=== PATIENT | male | born 1955 | race Caucasian/White ===

== ENCOUNTER 2016-04-27 12:32 | Outpatient (CLI) | payer BC ==
[~2016-04-27] VITALS: Ht 177.8 cm; Wt 95.5 kg
[2016-04-27] VITALS (8 sets, daily range): BP systolic 145–176; BP diastolic 84–101; PULSE 55–60; TEMP 97.5
[~2016-04-27 12:32] MED LIST: ASPIR-LOW81 MG PO; COREG12.5 MG PO; DIOVAN; EFFIENT5 MG PO; HEART BURN MED; NORCO 325 MG-51 TAB PO; PROTONIX20 MG PO
[2016-04-27] MEDS ORDERED: CELEXA 20MG20 MG/TAB PO (12:53)
[2016-04-27] MEDS ORDERED: DIOVAN 160MG160 MG PO (12:54)
[2016-04-27] MEDS ORDERED: EFFIENT10 MG PO (12:55)
[2016-04-27] MEDS ORDERED: OMEGA-3 1000 MG1 CAP PO (12:59)
[2016-04-27] MEDS ORDERED: FLOMAX 0.40.4 MG/CAP PO (13:00)
[2016-04-27] MEDS ORDERED: PHARMASSURE MA500 MG PO (13:00)
[2016-04-27] MEDS ORDERED: ASPIRIN 81M81 MG/TA2 PO (13:01)
[2016-04-27] MEDS ORDERED: PROTONIX 40MG T40 MG PO (13:01)
[2016-04-27] MEDS ORDERED: PROAIR HFA0.09 MG/AC IH (13:02)
[2016-04-27] MEDS ORDERED: LIORESAL 1010 MG/TAB PO (13:40)
[2016-04-27] MEDS ORDERED: CRESTOR20 MG PO (13:41)
[2016-04-27] MEDS ORDERED: 00186-0370-20 IH (13:41)
[2016-04-27] MEDS ORDERED: NITROSTAT0.4 MG/TAB SL (13:41)
== END 2016-04-27 17:14 | disposition home or self-care (01) ==
LOC: EUO 12:32
DX: M48.54XG Collapsed vertebra, not elsewhere classified, thoracic region, subsequent encounter for fracture with delayed healing (principal)
CPT/HCPCS: C1713; J2250; J3010; J7120

== ENCOUNTER → 2016-12-16 | Outpatient (CLI) | payer BC ==
[~2016-12-16] MED LIST changes: +00186-0370-20 IH; +ASPIRIN 81M81 MG/TA2 PO; +CELEXA 20MG20 MG/TAB PO; +CRESTOR20 MG PO; +DIOVAN 160MG160 MG PO; +EFFIENT10 MG PO; +FLOMAX 0.40.4 MG/CAP PO; +LIORESAL 1010 MG/TAB PO; +NITROSTAT0.4 MG/TAB SL; +OMEGA-3 1000 MG1 CAP PO; +PHARMASSURE MA500 MG PO; +PROAIR HFA0.09 MG/AC IH; +PROTONIX 40MG T40 MG PO
== END ==
LOC: COL.CARD 10:00
DX: R01.1 Cardiac murmur, unspecified (principal)

== ENCOUNTER 2017-10-09 12:17 | Inpatient (IN) | payer BC ==
[~2017-10-09] VITALS: Ht 175.3 cm; Wt 82.3 kg
[2017-10-09 13:04] LABS: BASO % 0.4 % (0.0-2.0); EOS # 0.1 (0.0-0.7); EOS % 0.7 % (0-4.0); GRAN # 6.9 (1.4-6.5); GRAN % 66.5 % (42.2-75.2); HEMATOCRIT 41.5 % (42.0-52.0); HEMOGLOBIN 14.1 g/dl (13.5-18.0); LYMPH # 2.1 (1.2-3.4); LYMPH % 20.6 % (20.0-51.0); MEAN CELL VOLUME 94 fl (80.0-100.0); MEAN CORPUSCULAR HEMOGLOBIN 32 pg (27.0-31.0); MEAN CORPUSCULAR HGB CONC 34 g/dl (33.0-37.0); MEAN PLATELET VOLUME 10.1 fl (7.4-10.4); MONO # 1.1 (0.1-0.6); MONO % 10.7 % (1.7-9.3); PLATELET COUNT 140 K/mm3 (130-400); RED BLOOD COUNT 4.41 M/mm3 (4.20-5.60); REDCELL DISTRIBUTION WIDTH-CV 12.7 % (11.5-14.5)
[2017-10-09 13:13] LABS: ALANINE AMINOTRANSFERASE 61 U/L (21-72); ALKALINE PHOSPHATASE 76 U/L (50-136); ANION GAP 12 mmol/L (7-16); AST,SGOT 43 U/L (15-37); BILIRUBIN,TOTAL 0.9 mg/dL (0.0-1.0); BLOOD UREA NITROGEN 16 mg/dL (9-20); CALCIUM 9.2 mg/dL (8.4-10.2); CARBON DIOXIDE 23 mmol/L (22-30); CHLORIDE 98 mmol/L (98-107); CREATININE, serum 1.01 mg/dL (0.66-1.25); GLUCOSE 119 mg/dL (74-106); LIPASE 400 U/L (23-300); POTASSIUM 4.2 mmol/L (3.4-5.0); SODIUM 133 mmol/L (137-145); TOTAL PROTEIN 7.2 gm/dL (6.4-8.2)
[2017-10-09 13:31] LABS: TROPONIN-I < 0.012 ng/mL (0.000-0.034)
[2017-10-09] MEDS ORDERED: CIALIS5 MG PO ×2 (13:56)
[2017-10-09 16:19] LABS: COLLECTION METHOD CLEAN CATCH
[2017-10-09 16:26] LABS: PH 6 (5-8); SQUAMOUS EPITHELIAL 0-2 /hpf; URINE APPEARANCE Clear; URINE BACTERIA None Seen /hpf; URINE BILIRUBIN Negative (NEGATIVE); URINE BLOOD Negative (NEGATIVE); URINE COLOR Yellow; URINE GLUCOSE Negative (NEGATIVE); URINE KETONE Negative (NEGATIVE); URINE LEUKOCYTE ESTERASE Negative (NEGATIVE); URINE NITRATE Negative (NEGATIVE); URINE PROTEIN(semi-quant) Negative (NEGATIVE); URINE RBC 0-2 /hpf; URINE UROBILINOGEN >=4.0 mg/dL (NEGATIVE)
[2017-10-09 16:27] VITALS: BP 149/85; PULSE 73; TEMP 98.4
[2017-10-09 19:33] VITALS: BP 142/67; PULSE 77; TEMP 98.6
[2017-10-10 04:31] VITALS: BP 140/66; PULSE 69; TEMP 98.5
[2017-10-10 08:15] VITALS: BP 147/84; PULSE 76; TEMP 98.2
[2017-10-10 11:43] VITALS: BP 147/81; PULSE 63; TEMP 97.7
[2017-10-10 16:01] VITALS: BP 137/84; PULSE 77; TEMP 98.5
[2017-10-10 19:59] VITALS: BP 154/86; PULSE 73; TEMP 98.4
[2017-10-11 01:01] VITALS: BP 160/83; PULSE 83; TEMP 97.9
[2017-10-11 04:29] VITALS: PULSE 75
[2017-10-11 07:54] VITALS: BP 173/93; PULSE 73; TEMP 97.7
[2017-10-11] MEDS ORDERED: OMNICEF 300MG300 MG PO ×2 (11:24→12:57)
[2017-10-11] MEDS ORDERED: ZITHROMAX500 M2 PO (12:57)
== END 2017-10-11 12:31 | disposition home or self-care (01) | DRG 194 ==
LOC: COL.ER 12:17 → MEDICAL 15:24
PROVIDERS: Emergency Medicine
DX: J18.9 Pneumonia, unspecified organism (principal); J44.0 Chronic obstructive pulmonary disease with (acute) lower respiratory infection; J44.9 Chronic obstructive pulmonary disease, unspecified; J20.9 Acute bronchitis, unspecified; I10 Essential (primary) hypertension; I25.10 Atherosclerotic heart disease of native coronary artery without angina pectoris; Z95.5 Presence of coronary angioplasty implant and graft; Z95.1 Presence of aortocoronary bypass graft; F17.210 Nicotine dependence, cigarettes, uncomplicated
CPT/HCPCS: 99223-AI; 99232-AI; 99239; G8978-GP; G8979-GP; J0456; J0696; J7030; J7050; Q9967

== ENCOUNTER → 2017-11-25 | Outpatient (CLI) | payer BC ==
[~2017-11-25] MED LIST changes: +CIALIS5 MG PO; +OMNICEF 300MG300 MG PO; +ZITHROMAX500 M2 PO
== END ==
LOC: COL.VAS 13:15
DX: I65.22 Occlusion and stenosis of left carotid artery (principal)

== ENCOUNTER 2023-03-25 10:59 | Day surgery (SDC) | payer MEDICARE ==
[~2023-03-25] VITALS: Ht 170.2 cm; Wt 70.1 kg
[2023-03-25] VITALS (11 sets, daily range): BP systolic 91–914; BP diastolic 63–93; PULSE 79–98; TEMP 97–98.2
[~2023-03-25 10:59] MED LIST changes: +COREG 25MG25 MG/TAB PO; -COREG12.5 MG PO; -CRESTOR20 MG PO; +CRESTOR5 MG PO; +DECADRON6 MG PO
[2023-03-25] MEDS ORDERED: NORCO 325 MG-51 TAB PO (12:09)
--- NOTE | 2023-03-25 16:00 | NUR ---
PATIENT IS ORIENTED BUT DROWSY POST-OP. DAUGHTER AT BEDSIDE. VSS. 02 @ 2L PER NC WITH SATS IN LOW TO MID 90'S. PATIENT'S LUNG FILEDS NOTE COARSE CRACKLES AND DEMINISHED BASES. PACU CALLED FOR BREATHING TX WHEN ARRIVED TO THE FLOOR PER ANESTHESIA. RT CALLED. HOSPITALIST NOTIFIED OF ARRIVAL FOR CONSULT. PATIENT HAS EXTENSIVE CARDIAC HX AND IS A DAILY SMOKER & DRINKER. PATIENT ALSO REPORTS APNEA AND WEARS A C-PAP AT HS. NO C/O PAIN OR NAUSEA. LEFT SHOULDER DSG IS CD&I WITH AQUACEL AND SLING INPLACE TO LUE. IV FLUIDS INFUSING INTO RIGHT HAND IV. LIQUIDS AT BEDSIDE. HEAD TO TOE ASSESSMENT COMPLETE. SCD'S TO BLE. NO OTHER NEEDS. CALL LIGHT IN REACH.
[2023-03-25] MEDS ORDERED: BREZTRI AEROS10.7 GM IH (16:01)
[2023-03-25] MEDS ORDERED: PROVENTIL0.09 MG/A1 IH (16:02)
--- NOTE | 2023-03-25 19:15 | NUR ---
Received change of shift report from day shift nurse. Patient resting in bed, call light in reach.
--- NOTE | 2023-03-25 20:53 | NUR ---
Denies urge to void at this time. Denies nausea/chest pain/SOA. IV fluids infusing with no problems.
--- NOTE | 2023-03-25 23:11 | NUR ---
Patient voided and stood at bedside for linen/gown changes due to sweating with x2 blankets with flat sheet. Patient tolerated standing at bedside for short periods due to back discomfort from history of back pain. Oxygen continues per nasal cannula at 2 lpm[address] sling in place to LUE, dressing to LUE in place/CDI.
[2023-03-26] VITALS (8 sets, daily range): BP systolic 105–125; BP diastolic 70–84; PULSE 60–74; TEMP 97.4–97.8
--- NOTE | 2023-03-26 05:42 | NUR ---
Saline locked right hand IV site as per doctor's order, denies nausea, tolerating sips of black coffee. Denies LUE surgical site pain, chest pain/SOA at this time. Denies urge to void. Encouraged patient to increase oral intake and to be up with assist at this time.
--- NOTE | 2023-03-26 06:40 | NUR ---
awake resting in bed, lab in to draw blood, bedside shift report received from RASHIDA Vela
--- NOTE | 2023-03-26 06:49 | NUR ---
Change of shift report given to day shift nurse
[2023-03-26 06:56] LABS: HEMOGLOBIN 10.7 g/dl (13.5-18.0)
[2023-03-26 06:58] LABS: HEMATOCRIT 32.2 % (42.0-52.0)
[2023-03-26 07:12] LABS: CALCIUM 8.7 mg/dL (8.4-10.2); CREATININE, serum 1.12 mg/dL (0.72-1.25); POTASSIUM 4.9 mmol/L (3.5-4.5)
--- NOTE | 2023-03-26 07:40 | NUR ---
HAMMAD Stewart was in to see patient, patient continues to c/o pain 09/05, medicated with scheduled tylenol and second roxicodone 5mg, full assessment completed, see interventions for further info, abductor sling in place to left arm, aquacel dressing CD&I, has brusing to left upper arm, CHAIN TESTING MACHINE OPERATOR in and assisted him up out of bed and into recliner for breakfast, breakast here and provided
--- NOTE | 2023-03-26 08:40 | NUR ---
physical therapy in to work with patient, assisted him with getting dressed and putting arm in abduction sling, patient states he is still having pain to left arm, explained to him it is too early to give additional pain meds, will monitor
--- NOTE | 2023-03-26 09:00 | NUR ---
patient stating he needs hisinhalers, cardiopulmonary notified and in and provided duoneb treatment
--- NOTE | 2023-03-26 09:30 | NUR ---
up in chair talking on phone, states breathing is better since breathing treatment, continues to c/o some pain to left shoulder, no grimacing or moaning noted
--- NOTE | 2023-03-26 09:40 | NUR ---
Initial visit; Patient thanked for coming in and visiting. He states he will be going home today and when asked stated that he has some nice kids who are available to help him. Direct Sales Professional offered God's blessings for healing and a wonderful, Happy New Year.
[2023-03-26] MEDS ORDERED: BENICAR40 MG PO (09:46)
[2023-03-26] MEDS ORDERED: NORVASC 10MG10 MG PO (09:46)
--- NOTE | 2023-03-26 10:10 | NUR ---
still c/o pain to left shoulder, medicated with roxicodone 5mg po
[2023-03-26] MEDS ORDERED: ROXICODONE 55 MG/TAB PO (10:56)
[2023-03-26] MEDS ORDERED: SENOKOT S 50 MG1 TAB PO (10:57)
--- NOTE | 2023-03-26 12:47 | NUR ---
spoke with HAMMAD Armstrong regarding patient's pain and only lasting 2 hours with roxicodone 5mg, will medicated with morphine 2mg to hold over until able to give roxicodne 10mg after 6 hours, instructed the patient this is what we would do and he verbalizes understanding, medicated at this time with moprhine 2mg slow IV, daughter at bedside, encouraged the patient to try and rest
--- NOTE | 2023-03-26 13:20 | NUR ---
continues to c/o pain, INT retaped and flushed and flusehs without difficulty or leaking, assisted out of bed and into recliner with ice to shoulder, encouraged him to try and rest, daughter remains at bedside
--- NOTE | 2023-03-26 14:00 | NUR ---
assisted up to bathroom and voids qs, states pain is finally better in left shoulder, back to recliner
--- NOTE | 2023-03-26 14:25 | NUR ---
tie up worker faxed a referral for [facility] per WANDA Belcher's request. Discharge Plan: Home with [facility]
--- NOTE | 2023-03-26 14:44 | NUR ---
medicated with roxicodone 10mg po for c/os pain, will montitor and will plan discharge later
--- NOTE | 2023-03-26 15:05 | NUR ---
INT discontinued, discharge instructions given to patient and his daughter, reinforced to patient and his daughter he is only to take roxicodone 5mg tabs (2) every 6 hours so the next dose would be at 2044, and he is not to take more often, also reinforced that he is to stop the hydrocodone, they verbalize understanding, daughter has talked with home health agency and they will be out tomorrow, Wednesday
--- NOTE | 2023-03-26 15:10 | NUR ---
discharged per WC
--- NOTE | 2023-03-26 15:24 | NUR ---
log chain worker met with patient to discuss discharge planning. Patient lives in [place]. Patient expressed he has a friend that stays with him sometimes but otherwise lives alone. Patient's daughter, Sofi, is his best point of contact, P# [phone]. PCP is Dr. Atkinson, preferred pharmacy is [facility]. Patient has no issues affording medications. DPOA-HC is Sofi Urena (daughter) and secondary is Willow Sevilla (daughter). Patient has a cane and CPAP at home. Patient reports he was independent with ADLS. Patient would like [facility] upon discharge. Patient would like to return home at time of discharge. WANDA Fisher, faxed [facility] referral for home health. Discharge Plan: Home with Home Health
== END 2023-03-26 15:10 | disposition home or self-care (01) ==
LOC: SDCO 10:59 → SURG 12:00 → EDSTATUS 12:00 → SDCO 12:00 → SURG 15:51 → SDCO 03-26 12:14 → SURG 03-26 12:14 → SDCO 03-26 12:16 → SURG 03-26 12:16 → SDCO 03-26 15:10
PROVIDERS: Physician Assistant
DX: S42.202A Unspecified fracture of upper end of left humerus, initial encounter for closed fracture (principal); G47.33 Obstructive sleep apnea (adult) (pediatric); K21.9 Gastro-esophageal reflux disease without esophagitis; I25.10 Atherosclerotic heart disease of native coronary artery without angina pectoris; E78.5 Hyperlipidemia, unspecified; I10 Essential (primary) hypertension; N40.0 Benign prostatic hyperplasia without lower urinary tract symptoms; J44.9 Chronic obstructive pulmonary disease, unspecified; F32.A Depression, unspecified; F17.210 Nicotine dependence, cigarettes, uncomplicated; F10.90 Alcohol use, unspecified, uncomplicated; W19.XXXA Unspecified fall, initial encounter; Z79.899 Other long term (current) drug therapy; Z95.1 Presence of aortocoronary bypass graft
CPT/HCPCS: OP; A4566; A4619; A6197; A9284; C1713; J0690; J1100; J2250; J2270; J2371; J2704; J2795; J3010; J7030; J7120

== ENCOUNTER 2023-05-10 12:46 | Inpatient (IN) | payer MEDICARE ==
[~2023-05-10] VITALS: Ht 175.3 cm; Wt 62.5 kg
[2023-05-10] VITALS (470 sets, daily range): BP systolic 68–101; BP diastolic 55–63; PULSE 67–80; TEMP 97.3–97.7; O2SAT 62–100
[~2023-05-10 12:46] MED LIST changes: +BENICAR40 MG PO; +BREZTRI AEROS10.7 GM IH; +NORVASC 10MG10 MG PO; +PROVENTIL0.09 MG/A1 IH; +ROXICODONE 55 MG/TAB PO; +SENOKOT S 50 MG1 TAB PO
[2023-05-10] MEDS ORDERED: NS 1,000 ML IV SCH ×2 (13:15→18:30)
[2023-05-10 13:25] LABS: BASO % 0.6 % (0.0-2.0); EOS # 0.1 K/mm3 (0.0-0.7); EOS % 1.4 % (0.0-4.0); GRAN # 2.4 K/mm3 (1.4-6.5); GRAN % 48.1 % (42.2-75.2); HEMATOCRIT 42.7 % (42.0-52.0); HEMOGLOBIN 15.2 g/dl (13.5-18.0); MEAN CELL VOLUME 92 fl (80.0-100.0); MEAN CORPUSCULAR HEMOGLOBIN 33 pg (27-31); MEAN CORPUSCULAR HGB CONC 36 g/dl (33.0-37.0); MONO # 0.5 K/mm3 (0.1-0.6); MONO % 9.5 % (1.7-9.3); PLATELET COUNT 161 K/mm3 (130-400); RED BLOOD COUNT 4.62 M/mm3 (4.20-5.60); REDCELL DISTRIBUTION WIDTH-CV 12.7 % (11.5-14.5)
[2023-05-10] MEDS ORDERED: Cefepime 2 G in Water For Injection,Sterile 20 ML IV ONE (13:30)
[2023-05-10 13:46] LABS: ALBUMIN 3.4 gm/dL (3.4-4.8); BILIRUBIN,TOTAL 0.4 mg/dL (0.2-1.2); CALCIUM 9.6 mg/dL (8.4-10.2); CREATININE, serum 1.53 mg/dL (0.72-1.25); POTASSIUM 4.7 mmol/L (3.5-4.5)
--- NOTE | 2023-05-10 15:00 | NUR ---
PT ARRIVED VIA STRETCHER FROM THE EMERGENCY DEPARTMENT. PT WAS ON AN OXYMAX AT 8L. PT WITH 2 IV SITES, ONE INFUSING VANCOMYCIN. PT IS ALERT AND ORIENTED. COMPLAINS OF PAIN IN HIS BACK. DAUGHTER IS IN THE WAITING ROOM. PT HAS POSSESSION OF HIS PHONE. DAUGHTER WILL BRING HOME WALLET. CALL LIGHT IS IN REACH AND THE BED ALARM IS ON.
[2023-05-10] MEDS ORDERED: Ondansetron 4 MG/2 ML VIAL IV PRN (16:00)
[2023-05-10] MEDS ORDERED: Acetaminophen 500 MG TAB PO PRN (16:00)
[2023-05-10] MEDS ORDERED: Folic Acid 1 MG,Thiamine 200 MG in NS 1,000 ML IV ONE (16:00)
[2023-05-10] MEDS ORDERED: Pantoprazole 40 MG in NS 10 ML IV SCH (16:02)
[2023-05-10 16:45] LABS: INR 1.1 (0.8-3.0); PROTHROMBIN TIME 12.1 SECONDS (9.7-12.8)
[2023-05-10] MEDS ORDERED: Lidocaine 4% Topical Patch TP SCH (17:07)
[2023-05-10] MEDS ORDERED: NORCO 325 MG-51 TAB PO (17:17)
[2023-05-10] MEDS ORDERED: diazePAM 10 MG TAB PO SCH (17:45)
[2023-05-10] MEDS ORDERED: diazePAM 5 MG TAB PO PRN (17:45)
[2023-05-10] MEDS ORDERED: Mag/Al Hydrox/Simeth Susp 30 ML CUP PO PRN (17:45)
[2023-05-10] MEDS ORDERED: chlordiazePOXIDE 25 MG CAP PO PRN (17:45)
[2023-05-10 18:18] LABS: COLLECTION METHOD CLEAN CATCH
[2023-05-10 18:27] LABS: URINE APPEARANCE CLEAR (CLEAR/HAZY); URINE BLOOD NEGATIVE (NEGATIVE); URINE COLOR YELLOW (YELLOW); URINE GLUCOSE NEGATIVE (NEGATIVE); URINE KETONE NEGATIVE (NEGATIVE); URINE NITRATE NEGATIVE (NEGATIVE); URINE PROTEIN(semi-quant) NEGATIVE (NEGATIVE); URINE UROBILINOGEN 0.2 E.U/dL (0.2-1.0)
[2023-05-10 18:41] LABS: TRICYCLIC ANTIDEPRESS URINE NEGATIVE (NEGATIVE)
[2023-05-10] MEDS ORDERED: NS 500 ML IV ONE (19:00)
--- NOTE | 2023-05-10 20:00 | NUR ---
PT IS ALERT AND ORIENTED TO SELF, BUT UNWILLING TO FULLY PARTICIPATE IN ASSESSMENT AT THIS TIME. LOW BP NOTED AND BEING MONITORED WITH BOLUS INFUSING AT THIS TIME. PT DENIES PAIN, BUT REPORTS HE IS TIRED AND WISHES TO BE LEFT ALONE. ASSESSMENTS COMPLETED, CARE PLANS REVIEWED, BED IN LOW POSITION, AND CALL LIGHT WITHIN REACH. NO ADDITIONAL NEEDS VOICED OR ANTICIPATED.
--- NOTE | 2023-05-10 21:54 | NUR ---
AT 2150 PT'S DAUGHTER, PATRICIA LÓPEZ, CALLED FOR CONCENT OF PLACEMENT OF CENTRAL LINE. SECOND NURSE VERIFIED CONSENT.
[2023-05-10 23:08] LABS: CREATININE, serum 1.21 mg/dL (0.72-1.25); POTASSIUM 4.6 mmol/L (3.5-4.5)
--- NOTE | 2023-05-10 23:20 | NUR ---
AT 2230 DR CASTRO AT BEDSIDE TO OBTAIN CENTRAL LINE INSERTION. BILATERAL SUBCLAVIAN SITES ATTEMPED UNSUCCESSFULLY. PT EDUCATED THAT A CENTRAL LINE SITE WAS NOT OBTAINED AT THIS TIME. RASHIDA NELSON WAS ABLE TO INITIATE PERIFERAL SITE TO R WRIST. PT TOLERATED WELL.
[2023-05-11] VITALS (975 sets, daily range): BP systolic 90–122; BP diastolic 54–80; PULSE 75–100; TEMP 97.3–98.7; O2SAT 84–100
[2023-05-11 05:46] LABS: BASO % 0.5 % (0.0-2.0); EOS # 0.1 K/mm3 (0.0-0.7); EOS % 2.3 % (0.0-4.0); GRAN # 3.3 K/mm3 (1.4-6.5); GRAN % 52.7 % (42.2-75.2); LYMPH # 2.1 K/mm3 (1.2-3.4); LYMPH % 34.6 % (20.0-51.0); MEAN CELL VOLUME 94 fl (80.0-100.0); MEAN CORPUSCULAR HGB CONC 35 g/dl (33.0-37.0); MONO # 0.6 K/mm3 (0.1-0.6); MONO % 9.4 % (1.7-9.3); PLATELET COUNT 141 K/mm3 (130-400); RED BLOOD COUNT 3.76 M/mm3 (4.20-5.60); REDCELL DISTRIBUTION WIDTH-CV 12.8 % (11.5-14.5)
[2023-05-11 05:57] LABS: HEMATOCRIT 35.4 % (42.0-52.0); MEAN CORPUSCULAR HEMOGLOBIN 32 pg (27-31)
[2023-05-11 05:58] LABS: HEMOGLOBIN 12.2 g/dl (13.5-18.0)
[2023-05-11 06:05] LABS: CALCIUM 8.2 mg/dL (8.4-10.2); CREATININE, serum 1.13 mg/dL (0.72-1.25); POTASSIUM 4.2 mmol/L (3.5-4.5)
--- NOTE | 2023-05-11 07:00 | NUR ---
Report received from RASHIDA Schaffer. Pt had to be placed on levophed overnight but working on titrating off. Pt alert and oriented this AM. Scoring 0 on CIWA at this time. NS infusing to right wrist. Pt offers no complaints. Call light in reach and bed alarm on.
[2023-05-11] MEDS ORDERED: Multivitamin TAB PO SCH (08:00)
[2023-05-11] MEDS ORDERED: Folic Acid 1 MG TAB PO SCH (09:00)
[2023-05-11] MEDS ORDERED: Budesonide/Glycopyrrolate/Formoterol **** subs to Budesonide + Umeclid/Vilant IH SCH (10:51)
[2023-05-11] MEDS ORDERED: Albuterol 0.042% Neb Soln 1.25 MG/3 ML UD IH PRN (11:00)
[2023-05-11] MEDS ORDERED: LORAZEPAM PO PRN (11:15)
[2023-05-11] MEDS ORDERED: Magnesium Sulfate 2 GM/50 ML IV SOLN IV SCH (11:30)
[2023-05-11] MEDS ORDERED: Magnesium Oxide 400 MG TAB PO SCH (12:16)
--- NOTE | 2023-05-11 13:03 | NUR ---
Gearcase Assembler met with patient to complete initial intake. Patient lives alone in [place] and sees Dr. Atkinson for primary care. Patient obtains medications from [facility] and advised he normally picks them up. Patient is able to drive himself to medical appointments and reported independence with ADLS. Patient did indicate he has had some recent falls at home and estimated 3 or 4 recent falls. Patient has a home CPAP, a cane, and walker. Patient stated he has mostly been using a cane for ambulation. Patient reported having services through [facility] currently. Patient advised his daughter, Sofi (ph#[phone]) is his DPOA-HC and that the hospital should have a copy of it. WANDA did not locate any Advance Directives in EMR. WANDA contacted Dr. Atkinson's office and requested copy, however they also did not have one. WANDA contacted Mansoor at [facility] and faxed clinical updates.
--- NOTE | 2023-05-11 17:00 | NUR ---
REPORT RECEIVED FROM RASHIDA WOOD, IN ICU. PT ON THE FLOOR VIA WHEELCHIAR WITH BELONGINGS AND DAUGHTER AT BEDSIDE. PT ORIENTED TO ROOM AND FLUIDS STARTED PER ORDER. PT ON 2L NASAL CANNULA AND REPORTS BEING SHORT OF BREATH FROM ICU TRANSFER. PT REPORTS DISCOMFORT TO RIGHT SIDE OF NECK WHEN SWALLOWING, ISRAEL NOTIFIED THIS NURSE THAT PREVIOUS ATTEMPTS TO START CENTRAL LINE COULD RELATE TO PAIN. PT HAS SCATTERED BRUISING TO BILATERAL UPPER EXTREMITIES. PT HAS A SMALL LACERATION TO HIS HEAD, ABRASION TO MID BACK, ABRASION TO LOWER BACK/SACRUM WITH MEPILEX TO SACRUM. PT HAS A TUNNELING LACERATION/ULCER TO LEFT ELBOW, DRESSING CHANGED AND A SMALL AMOUNT OF BROWN/GREEN DRAINAGE NOTED. PT DENIES NEEDS AT THIS TIME. BED IN LOWEST POSITION, CALL LIGHT IN REACH, BED ALARM ON
--- NOTE | 2023-05-11 18:42 | NUR ---
MED RED DONE
[2023-05-11] MEDS ORDERED: Budesonide Neb Susp 0.5 MG/2 ML AMP IH SCH (19:00)
[2023-05-11] MEDS ORDERED: Atorvastatin 10 MG TAB PO SCH (21:00)
[2023-05-12] VITALS (10 sets, daily range): BP systolic 95–144; BP diastolic 61–85; PULSE 74–95; TEMP 97.5–98.1
--- NOTE | 2023-05-12 01:30 | NUR ---
CALL PLACED TO RT. LEVINE'S REPIRATIONS ARE COARSE WITH AUDIBLW WHEEZING.
[2023-05-12 07:34] LABS: BASO # 0.1 K/mm3 (0.0-0.2); BASO % 0.9 % (0.0-2.0); EOS # 0.2 K/mm3 (0.0-0.7); EOS % 3.3 % (0.0-4.0); GRAN # 2.8 K/mm3 (1.4-6.5); GRAN % 48.3 % (42.2-75.2); HEMOGLOBIN 12.2 g/dl (13.5-18.0); LYMPH # 2.2 K/mm3 (1.2-3.4); LYMPH % 37.8 % (20.0-51.0); MEAN CELL VOLUME 92 fl (80.0-100.0); MEAN CORPUSCULAR HEMOGLOBIN 33 pg (27-31); MEAN CORPUSCULAR HGB CONC 36 g/dl (33.0-37.0); MEAN PLATELET VOLUME 10.5 fl (7.4-10.4); MONO # 0.5 K/mm3 (0.1-0.6); MONO % 9.4 % (1.7-9.3); PLATELET COUNT 143 K/mm3 (130-400); RED BLOOD COUNT 3.73 M/mm3 (4.20-5.60); REDCELL DISTRIBUTION WIDTH-CV 12.6 % (11.5-14.5)
[2023-05-12 07:37] LABS: HEMATOCRIT 34.4 % (42.0-52.0)
[2023-05-12 07:40] LABS: CALCIUM 8.3 mg/dL (8.4-10.2); CREATININE, serum 0.83 mg/dL (0.72-1.25); POTASSIUM 4.6 mmol/L (3.5-4.5)
--- NOTE | 2023-05-12 07:56 | NUR ---
patient lying in bed alert and oriented x2. pt reoriented to place and time. pt denies chest pain and shortness of breath. IV in LW and RW are patent, sites are clean dry and intact with NS running at 75 ml/hr in RW. noted to have a wet cough, dressing on left elbow lac/ulcer that has small tunneling and drainage. bandaids on upper chest from scabs, small closed abrasion on mid left back and lower left back sacrum redness, mepilex for protection. pt has no further needs, questions or concerns at this time. fall precautions in place, call light within reach. continued to monitor.
[2023-05-12] MEDS ORDERED: Prasugrel 10 MG TAB PO SCH (09:00)
[2023-05-12] MEDS ORDERED: Umeclidinium/Vilanterol 62.5-25 MCG INHALATION/INHALER IH SCH (09:00)
--- NOTE | 2023-05-12 09:18 | NUR ---
PATIENT EXPORY WHEEZING UPON ENTERING ROOM. GAVE PRN 1.25MG ALBUTEROL NEB. SOUNDS MUCH BETTER SFAINT WHEEZING REMAINS WILL CONTINUE TO MONITOR,
--- NOTE | 2023-05-12 09:54 | NUR ---
Patient is resting in bed, some difficulty breathing, RT leaving room after treatment. Wound nurse enter and changed his dressing. Assessment completed, meds given. Getting fluids per orders. No further needs at this time. Call light within reach.
[2023-05-12] MEDS ORDERED: Furosemide 40 MG TAB PO ONE (15:15)
--- NOTE | 2023-05-12 16:23 | NUR ---
Home Administrator met with patient to discuss discharge planning and review recommendation for SNF. Patient's daughter, Willow is on speakerphone and is supportive of this recommendation. SW provided Medicare.gov list of SNF options. Patient declined SNF and stated he would not be going anywhere to stay. SW discussed the benefits of SNF and reasoning behind recommendation. Patient is firm that he will not go to SNF or swing bed. WANDA met with patient's daughter, Sofi burgos who expressed great concern about patient returning home. Sofi advised patient has money and can pay for in home care, even / care, but that in home agencies have refused to provide these services due to his drinking. Sofi stated patient does not want to go to a facility because of his drinking and smoking. WANDA advised at this time patient has decision making capacity but that she will continue to follow up with patient on recommendations. Sofi advised she has a message out to patient's PCP as well to provide update and see if PCP can follow up with patient on these recommendations.
--- NOTE | 2023-05-12 20:00 | NUR ---
UPON SHIFT ASSESSMENT, ABNER WAS TRYING TO AMBULATE TO THE BATHROOM, JUMPING BED ALARM. HE HAD SIGNIFICANT WEAKNESS AND ALMOST FELL. LUNG SOUNDS AUSCULTATED COARSE CRACKLES AND EXP. WHEEZES. VS ARE WNL AND TELE IS NS PACED. DENIES PAIN AT THIS TIME. CIWA SCORE 1
--- NOTE | 2023-05-12 21:30 | NUR ---
TALKED WITH HOSPITALIST, EDGAR AT NURSE'S STATION. ABNER IS NOT SCORING HIGH ENOUGH ON CIWA TO WARRANT ATIVAN ADMINISTERATION, HOWVEVER HE THREATENS TO LEAVE AMA IF WE DON'T LET HIM GO OUTSIDE TO SMOKE. OFFERED NICOTINE PATCH WHICH HE REFUSED. VORB TO GIVE XANAX FOR AGITATION AND ANXIETY R/T NICOTINE AND ETOH WITHDRAWL GIVEN.
[2023-05-12] MEDS ORDERED: ALPRAZolam 0.5 MG TAB PO PRN (21:45)
[2023-05-13] VITALS (9 sets, daily range): BP systolic 88–148; BP diastolic 61–93; PULSE 65–111; TEMP 97.4–98.1
--- NOTE | 2023-05-13 01:00 | NUR ---
PATIENT C/O 0F 8/10 HEAD ACHE BEHIND LT EYE. PRN TYLENOL ADMINISTERED VS WNL
--- NOTE | 2023-05-13 05:56 | NUR ---
CALL PLACED TO HOSPITALISTZHEN. PATIENT IS LETHARGIC AND ALTHOUGH VS ARE WNL, HE IS AXO X1 AND LUNG SOUNDS COARSE IN UPPER LOBES. THROUGHOUT THE NIGHT, THE PATIENT BECAME INCONTINENT AND WOULD ASK, "DO YOU KNOW WHERE MY CAR IS?" TORB FOR ABG GIVEN.
--- NOTE | 2023-05-13 06:05 | NUR ---
TORB TO HOLD VALIUM GIVEN BY HOSPITALIST D/T PATIENT'S LETHARGY.
[2023-05-13 06:24] LABS: BASO % 0.5 % (0.0-2.0); EOS # 0.1 K/mm3 (0.0-0.7); EOS % 1.6 % (0.0-4.0); GRAN # 4.5 K/mm3 (1.4-6.5); GRAN % 60.3 % (42.2-75.2); HEMOGLOBIN 12.4 g/dl (13.5-18.0); LYMPH # 2.2 K/mm3 (1.2-3.4); LYMPH % 29.1 % (20.0-51.0); MEAN CELL VOLUME 94 fl (80.0-100.0); MEAN CORPUSCULAR HEMOGLOBIN 33 pg (27-31); MEAN CORPUSCULAR HGB CONC 35 g/dl (33.0-37.0); MEAN PLATELET VOLUME 10.2 fl (7.4-10.4); MONO # 0.6 K/mm3 (0.1-0.6); MONO % 8.2 % (1.7-9.3); PLATELET COUNT 149 K/mm3 (130-400); REDCELL DISTRIBUTION WIDTH-CV 12.7 % (11.5-14.5)
[2023-05-13 06:27] LABS: HEMATOCRIT 35.6 % (42.0-52.0)
[2023-05-13 06:38] LABS: CALCIUM 8.8 mg/dL (8.4-10.2); CREATININE, serum 0.9 mg/dL (0.72-1.25); POTASSIUM 4.3 mmol/L (3.5-4.5)
--- NOTE | 2023-05-13 07:10 | NUR ---
Pt sleeping in bed. Pt is lethargic, will open eyes to voice but does not stay awake. Per nightshift pt has been lethargic since xanax given overnight. Tyrel CUEVA came to evaluate Pt and placed orders for abg and chest xray. This RN called RT and radiology for test. Pt in fall precations and bedalarm active.
--- NOTE | 2023-05-13 07:30 | NUR ---
RT called for abg. Radiology called for chest xray.
[2023-05-13 07:41] LABS: ARTERIAL BLD GAS O2 SATURATION 95.7 % (92-100); ARTERIAL BLD GAS TCO2 CT 26.7; ARTERIAL BLOOD GAS BASE EXCESS 2.5 (-2-2); ARTERIAL BLOOD GAS HCO3 25.6 meq/L (22-26); ARTERIAL BLOOD GAS PCO2 34.7 mmHg (35-45); ARTERIAL BLOOD GAS PO2 74.3 mmHg (80-100); ARTERIAL BLOOD GAS pH 7.49 (7.35-7.45)
--- NOTE | 2023-05-13 08:26 | NUR ---
SHIFT ASSESSMENT COMPLETE. VSS. PATIENT SLEEPING RR 18, RESPONDS TO TOUCH AND VOICE. PATEINT UNBALE TO WAKE LONG ENOUGH TO TAKE PO MEDS THIS AM, PROMARY NURSE NOTIFIED. PATIENT HAS SCATTERED BRUISING ON ARMS AND A SMALL SKIN TEAR ON RT. ARM W/BANDAID. WOUND ON LFT ELBOW COVERED WITH GABE BANFAGE CDI. MARIA IN PLACE WITH YELLOW CLEAR URINE DRAINING. TELE IN PLACE HR 81. FALL PRECAUTIONS IN PLACE AND CALL LIGHT IN REACH.
[2023-05-13] MEDS ORDERED: Thiamine 100 MG TAB PO SCH (09:00)
--- NOTE | 2023-05-13 13:32 | NUR ---
1300-WOUND CARE DONE TO LEFT ELBOW WOUND. DRESSING AND PACKING REMOVED. LOOSE WHITE MATERIAL/TISSUE DANGLING OUTSIDE OF WOUND. SITE IRRIGATED. WOUND REPACKED AND DRESSING APPLIED. REVIEWED WOUND CARE NURSES' NOTE. NO MENTION OF LOOSE MATERIAL/TISSUE NOTED. WOUND CARE CALLED AND MESSAGE LEFT. DARLING CUEVA NOTIFIED. SHE SPOKE WITH ORTHO PA AND HE WILL COME EVALUATE.
--- NOTE | 2023-05-13 13:56 | NUR ---
DARLING CUEVA AND BEDSIDE TO LOOK AT WOUND. STATED THEY WILL CONSULT ORTHO.
[2023-05-13] MEDS ORDERED: Furosemide 40 MG/4 ML VIAL IV ONE (14:00)
--- NOTE | 2023-05-13 14:50 | NUR ---
ALPA MCINTYRE, WITH WOUNDCARE, CALLED THIS RN BACK. SHE STATES THE LOOSE TISSUE WITHIN PT'S ELBOW WOUND HAS BEEN PRESENT SINCE SHE HAS SEEN PT. WE ARE TO JUST PACK AROUND IT. WILL ENDORSE TO FOLLOWING RN.
[2023-05-13] MEDS ORDERED: Iohexol 300 - 100 ML VIAL IV ONE (16:04)
[2023-05-13] MEDS ORDERED: NS 100 ML IV SCH (16:04)
--- NOTE | 2023-05-13 21:00 | NUR ---
UPON SHIFT ASSESSMENT, ABNER WAS STILL SOMNELENT BUT COULD BE AROUSED BY VOICE COMMANDS-AXO X2 LUNG SOUNDS-COARSE CRACKLES UPPER LOBES WITH EXP. AND INSP. WHEEZES. LOWER LOBES DIMINSHED. VS ARE WNL, TELE NS. 02 OXYMASK 2L. DRESSING TO LT ELBOW CDI. PATIENT DENIES PAIN. DENIES NEEDS AT THIS TIME.
--- NOTE | 2023-05-14 02:00 | NUR ---
DRESSING CHANGE TO LT ELBOW. SERINSANGEOUS SOAKED ABD. CLEAN ABD AND GABE WRAP APPLIED. PATIENT TOLERATED WELL. WOUND RED BUT NO EDEMA OR FOUL ODOR NOTED.
[2023-05-14 04:07] VITALS: BP 101/72; PULSE 107; TEMP 97.9
[2023-05-14 07:17] LABS: BASO % 0.5 % (0.0-2.0); EOS # 0.1 K/mm3 (0.0-0.7); EOS % 0.6 % (0.0-4.0); GRAN # 5.1 K/mm3 (1.4-6.5); GRAN % 61.8 % (42.2-75.2); HEMATOCRIT 37.2 % (42.0-52.0); HEMOGLOBIN 13.4 g/dl (13.5-18.0); LYMPH # 2.3 K/mm3 (1.2-3.4); MEAN CELL VOLUME 91 fl (80.0-100.0); MEAN CORPUSCULAR HEMOGLOBIN 33 pg (27-31); MEAN CORPUSCULAR HGB CONC 36 g/dl (33.0-37.0); MEAN PLATELET VOLUME 10.6 fl (7.4-10.4); MONO # 0.7 K/mm3 (0.1-0.6); MONO % 8.6 % (1.7-9.3); PLATELET COUNT 174 K/mm3 (130-400); RED BLOOD COUNT 4.09 M/mm3 (4.20-5.60); REDCELL DISTRIBUTION WIDTH-CV 12.7 % (11.5-14.5)
[2023-05-14 07:45] LABS: CALCIUM 9.5 mg/dL (8.4-10.2); CREATININE, serum 0.86 mg/dL (0.72-1.25); MAGNESIUM 1.4 mg/dL (1.6-2.6); POTASSIUM 4.2 mmol/L (3.5-4.5)
[2023-05-14 07:52] VITALS: BP 100/70; PULSE 99; TEMP 99.4
--- NOTE | 2023-05-14 09:50 | NUR ---
PT LAYING IN BED UPON ENTERING. ASSESSMENT DONE, MEDS GIVEN BY LON FORTE ADN STUDENT. PT DROWSY THIS MORNING BUT AN IMPROVEMENT PER DELIVERY PROFESSIONAL RN. PT HAS 2 SITES, 1 LEFT WRIST AND 1 RIGHT WRIST AND BOTH PATENT. PT REPORTS BACK PAIN AND LIDOCAINE PATCH IN PLACE. PT ORIENTEDX4 WITH NO CONFUSED SPEECH AT THIS TIME. PT ON 3L OXYMASK AND DENIES BEING SHORT OF BREATH AT THIS TIME. PT HAS A STAGE 2 PRESSURE INJURY TO COCCYX AND AN ABRASION TO MID BACK. PT HAS AN OPEN WOUND TO LEFT ELBOW COVERED WITH ABD PAD AND AN GABE WRAP. CRACKLES HEARD IN BASES AND A PRODUCTIVE COUGH NOTED. PT PRODUCING CLEAR THICK SPUTUM. PT DENIES NEEDS AT THIS TIME, BED IN LOWEST POSITION, CALL LIGHT IN REACH.
--- NOTE | 2023-05-14 10:36 | NUR ---
Pt in bed with oxymask on 3L/min with ongoing coughing. D/C right hand peripheral line d/t drainage present with RN Z. Pt rates pain 5/10 currently in middle of back and requests to lay down. Fall precautions in place and call light within reach.
[2023-05-14 10:39] VITALS: BP 98/72; PULSE 96; TEMP 97.9
[2023-05-14 15:53] VITALS: BP 109/75; PULSE 93; TEMP 98.8
--- NOTE | 2023-05-14 17:19 | NUR ---
merchandise worker was notified by Dr. Muller that patient was open to placement for rehab. SW met with patient and he stated he was okay with SNF. SW asked for options and patient requested SW to speak with daughter. SW contacted patient's daughter and she was open to [facility]. SW faxed referrals to [facility] in [place], [facility], [facility], [facility], [facility], [facility]. SW was notified that [facility] is out of network with [facility]. [facility] is unable to meet patient's needs. SW was notified [facility] is reviewing. Discharge plan: SNF
[2023-05-14 19:21] VITALS: BP 100/69; PULSE 105; TEMP 98.3
[2023-05-14 23:11] VITALS: BP 110/80; PULSE 95; TEMP 98.5
[2023-05-15 03:40] VITALS: BP 98/67; PULSE 98; TEMP 97.4
[2023-05-15 07:13] VITALS: BP 110/77; PULSE 88; TEMP 97.7
[2023-05-15 08:45] LABS: BASO # 0.1 K/mm3 (0.0-0.2); BASO % 0.7 % (0.0-2.0); EOS # 0.1 K/mm3 (0.0-0.7); EOS % 0.9 % (0.0-4.0); GRAN % 53.8 % (42.2-75.2); HEMATOCRIT 37.9 % (42.0-52.0); HEMOGLOBIN 13.2 g/dl (13.5-18.0); LYMPH # 2.4 K/mm3 (1.2-3.4); LYMPH % 31.8 % (20.0-51.0); MEAN CELL VOLUME 91 fl (80.0-100.0); MEAN CORPUSCULAR HEMOGLOBIN 32 pg (27-31); MEAN CORPUSCULAR HGB CONC 35 g/dl (33.0-37.0); MEAN PLATELET VOLUME 9.6 fl (7.4-10.4); MONO # 0.9 K/mm3 (0.1-0.6); MONO % 12.4 % (1.7-9.3); PLATELET COUNT 198 K/mm3 (130-400); RED BLOOD COUNT 4.15 M/mm3 (4.20-5.60); REDCELL DISTRIBUTION WIDTH-CV 12.8 % (11.5-14.5)
[2023-05-15 08:59] LABS: CALCIUM 9.4 mg/dL (8.4-10.2); CREATININE, serum 0.92 mg/dL (0.72-1.25); POTASSIUM 4.4 mmol/L (3.5-4.5)
[2023-05-15 11:37] VITALS: BP 106/76; PULSE 86; TEMP 97.6
--- NOTE | 2023-05-15 12:56 | NUR ---
Data: Reset Merchandiser referred by another Reset Merchandiser. Visit offered during Reset Merchandiser rounds. Patient's visitor declined on behalf of the Patient because the Visitor had traveled from [place] specifically to visit his friend. Patient was smiling and nodding, appearing to be in agreement with his Friend. Assessment: No Reset Merchandiser visit completed; no assessment completed. Plan of Care: Chaplains will remain available as needed/requested while Patient is admitted to this hospital.
[2023-05-15 15:52] VITALS: BP 93/65; PULSE 104; TEMP 97.9
[2023-05-15] MEDS ORDERED: Polyethylene Glycol 3350 17 GM PDS PO SCH (16:00)
[2023-05-15] MEDS ORDERED: Nicotine 21 MG DAILY PATCH TD SCH (18:12)
[2023-05-15 19:15] VITALS: BP 97/63; PULSE 93; TEMP 97.6
[2023-05-15] MEDS ORDERED: Docusate Sodium 100 MG CAP PO SCH (21:00)
[2023-05-16] VITALS (7 sets, daily range): BP systolic 90–122; BP diastolic 63–91; PULSE 64–105; TEMP 97.4–98.4
--- NOTE | 2023-05-16 06:35 | NUR ---
PATIENT AWAKE AND ALERT, RESTING IN BED. SHEILA DENIES ANY NEEDS OR COMPLAINTS AT THIS TIME. CALL LIGHT WITHIN REACH. FALL PRECAUTIONS INPLACE. SHEILA HAS OM ON AT 2L.
[2023-05-16] MEDS ORDERED: guaiFENesin Oral Soln 200 MG/10 ML UD PO PRN (16:00)
[2023-05-17 04:04] VITALS: BP 127/84; PULSE 87; TEMP 97.7
[2023-05-17 07:27] VITALS: BP 106/74; PULSE 103; TEMP 97.6
[2023-05-17 08:30] LABS: CREATININE, serum 0.9 mg/dL (0.72-1.25); MAGNESIUM 1.6 mg/dL (1.6-2.6); POTASSIUM 4.5 mmol/L (3.5-4.5)
--- NOTE | 2023-05-17 08:47 | NUR ---
ASSESSMENT COMPLETE. APPLIED NEW NICOTINE AND LIDOCAINE PATCHES. DURING ASSESSMENT, WOUND CARE NURSE ARRIVED AT BEDSIDE TO EVALUATE AND TREAT PATIENT.
--- NOTE | 2023-05-17 11:15 | NUR ---
reworker contacted [facility] regarding referral. [facility] is unable to accept. WANDA contacted [facility] whom expressed they are unable to accept. WANDA contacted [facility] whom reports they did not receive the referral. SW will resend. WANDA updated Sancho, patient's family member, on referral status. WANDA contacted [facility] whom expressed they are unable to accept. WANDA StudentGeovanna, faxed [facility] Discharge plan: SNF
[2023-05-17 12:13] VITALS: BP 100/69; PULSE 103; TEMP 97.8
--- NOTE | 2023-05-17 12:25 | NUR ---
Social Work student Geovanna sent SNF referral to Dave at [facility], [facility], and [facility].
--- NOTE | 2023-05-17 14:13 | NUR ---
Social work student Geovanna followed up on SNF referrals. SW student left voicemail for [facility]. [facility] stated their admissions lady is currently out, but will call back. [facility] said they did not get the fax. SW student re-sent referral. Legrolly at [facility] stated they will search for referral and call back. Discharge: SNF
--- NOTE | 2023-05-17 14:26 | NUR ---
tree and shrub worker was notified Michelle Gonzales at [facility] is unable to accept patient. SW was notified Dave at [facility] is unable to accept patient due to insurance. Discharge plan: SNF
--- NOTE | 2023-05-17 15:04 | NUR ---
Social Work student Geovanna sent SNF referral to [facility], [facility], [facility], [facility], and [facility].
[2023-05-17 15:35] VITALS: BP 95/67; PULSE 100; TEMP 97.8
--- NOTE | 2023-05-17 17:13 | NUR ---
ornamental iron worker apprentice contacted daughter, Sofi, to provide an update that they did not have an accepting facility yet but she sent referrals to 4-5 in [place] and all that are located in [place]. WANDA updated facilities are declining due to bed availability, alcohol withdraws or unable to accept his insurance. Sofi stated they could look into [facility] these facilities are unable to accept. WANDA was notified [facility] is looking at accepting. WANDA notified Sofi whom expressed she would contact the facility but wanted to see what the facilities that she had sent to in [place] stated tomorrow. Sofi is going to speak with her sister whom lives in [place] as well. WANDA will follow up. Discharge plan: SNF
[2023-05-17 19:23] VITALS: BP 118/85; PULSE 104; TEMP 98.1
--- NOTE | 2023-05-17 21:00 | NUR ---
SHIFT ASSESSMENT COMPLETE. ABNER HAD FAMILY BEDSIDE AND HE REMAINS LETHARGIC BUT AROUSES TO VOICE. LUNG SOUNDS CRACKLES IN UPPER LOBES BILATERALLY. VS ARE WNL. TELE IS NS. TOLD THAT PT HAD HIM UP AMBULATING FOR SHORT DISTANCE DURING DAY. APPETITE REMAINS POOR.
--- NOTE | 2023-05-17 21:30 | NUR ---
LT ELBOW DRESSING CHANGED. SCANT SEROUS DRAINAGE NOTED ON GAUZE. WHITE TENDON OR FACSIA NOTED LYING OUTSIDE OF WOUND, OTHERWISE CDI.
--- NOTE | 2023-05-17 23:00 | NUR ---
REMOVED NC AND REPLACED WITH OXYMASK PATIENT IS MOUTH BREATHING WHILE ASLEEP. VS ARE WNL O2 @ 3.5 L
[2023-05-17 23:28] VITALS: BP 132/88; PULSE 99; TEMP 97.9
[2023-05-18 03:45] VITALS: BP 127/85; PULSE 90; TEMP 98.1
--- NOTE | 2023-05-18 07:00 | NUR ---
PATIENT ASLEEP, RESTING IN BED. PATINET AROUSES EASY TO NAME DENIES ANY NEEDS OR COMPLAINTS AT THIS TIME. CALL LIGHT WITHIN REACH. BED ALARM ON. FALL PRECAUTIONS IN PLACE. 4LOM.
[2023-05-18 07:53] VITALS: BP 104/75; PULSE 100; TEMP 97.5
[2023-05-18] MEDS ORDERED: Magnesium Sulfate 2 GM/50 ML IV SOLN IV ONE (08:30)
[2023-05-18 11:45] VITALS: BP 117/79; PULSE 89; TEMP 97.4
--- NOTE | 2023-05-18 11:45 | NUR ---
PT RESTING IN BED. PT SLOW TO VERBALLY RESPOND TO YES/NO QUESTIONS. PT UNABLE TO FOLLOW COMMANDS. PT'S SON AT BEDSIDE. VSS. CALL LIGHT, URINAL, AND FULL WATER JUG IN REACH.
--- NOTE | 2023-05-18 12:30 | NUR ---
PT RESTING IN BED WITH OXYMASK OFF. TRAY AT BEDSIDE. PT'S RESPIRATIONS APPEAR TO BE SHALLOW AND SLOW. OXYMASK REAPPLIED AT 6L 02. PT'S RESPIRATIONS DEEPENED AT 16 BREATHS/MIN. PT RESPONDED SLOWLY WHEN ASKED IF HE WAS FEELING TIRED. PT SAID YES. PT ROLLED ONTO SIDE TO ASSESS POSTERIOR. PT BECAME APNEIC FOR 10-15 SECONDS. INSTRUCTED TO DEEP BREATH. BREATHING RESUMED AND RHONCHI NOTED TO ALL LUNG CORNELL. PT HAS ONE DRESSING ON LT SIDE OF BACK AND ONE DRESSING TO SACRAL AREA. BOTH CDI.
--- NOTE | 2023-05-18 13:00 | NUR ---
ALL DRESSINGS CHANGED. PATIENT RESTING IN BED, CALL LIGHT WITHIN REACH. 02 VIA OM ON. FALL PRECAUTIONS IN PLACE. URINAL WITHIN REACH.
--- NOTE | 2023-05-18 13:20 | NUR ---
LT ELBOW DRESSING CHANGED. WOUND IS OPEN WITH PART OF LIKELY TENDON EXPOSED. PREVIOUS GAUZE LIGHTLY SATURATED WITH PURULENT DRAINAGE. WOUND LIGHTLY PACKED WITH IODOFORM. DRESSING SECURED WITH ABD PAD AND GABE WRAP. SACRAL DRESSING CHANGED. DISCOLORATION OF SITE NOTED. NO DRAINAGE. REMOVED DRESSING ON LEFT SIDE OF BACK. WOUND ABOUT 1 FINGERTIP LENGTH AND WIDTH. NONE REAPPLIED.
--- NOTE | 2023-05-18 13:50 | NUR ---
PATIENTS DAUGHTER STATED SHE BELIVES PATEINT NEEDS RESPIRATORY TREATMENT. PATIENT AGREEABLE. RT CALLED AND PATIENT HAS A TREATMENT AVAILABLE. RT COMING TO SEE PATIENT
--- NOTE | 2023-05-18 14:05 | NUR ---
PT COMPLAINS OF DRY, UNPRODUCTIVE COUGH. RT TO COME IN WITH PRN BREATHING TX. ADMINISTERD GUAIFENSIN 5ML. PT MORE ALERT. PT'S DAUGHTER AT BEDSIDE.
--- NOTE | 2023-05-18 14:15 | NUR ---
PT EDUCATED ON INCENTIVE SPIROMETER. PT ABLE TO 5 REPS UP TO 1000ML. ALL NEEDS MET AT THIS TIME. CALL LIGHT IN REACH. FAMILY AT BEDSIDE.
--- NOTE | 2023-05-18 15:30 | NUR ---
PT AMBULATED TO DOOR AND BACK. TACHYCARDIA NOTED ON TELEMETRY. PT DENIED DIZZINESS. PT ENDORSES A LESS FREQUENT COUGH AND MORE SPUTUM. PT BACK IN BED RESTING WITH CALL LIGHT IN REACH.
[2023-05-18 16:06] VITALS: BP 129/90; PULSE 94; TEMP 98.3
--- NOTE | 2023-05-18 16:51 | NUR ---
rack worker contacted the pending facilities for patient. [facility], [facility], [facility] [place] and [place] stated they are out of network with [employer]. WANDA and WANDA student left several voicemails for [facility]. No answer by end of day. [facility] at [place] is unable to accept. [facility] expressed they are unable to accept to due behaviors, SW asked for clarification and it was due to patient expressing he would leave AMA. SW reviewed notes and this was at the beginning of admit but facility still unwilling to accept. [facility] in [place] is unable to accept. SW contacted [facility] as they expressed previously they were out of network with [employer]. Their nursing is now reviewing to see if they could clinically accept. [facility] is able to accept patient. WANDA met with patient's daughter, Sofi, to provide the above information. Sofi reports her sister whom lives in [place] is aware of [facility] and does not want patient to go to their facility. WANDA explained if patient is medically ready for discharge tomorrow we would need to discharge as we have an accepting facility so he would need to either return home with home health or go to accepting facility. Sofi expressed he would need to go home if the other facilities that are pending are unable to accept as they do not want him going to [place]. WANDA provided Medicare.gov list of home health options in the area along with private pay caregivers to assist with 19/10 care. Sofi asked if SW would contact [facility] as well to see if they could accept by tomorrow. SW Student contacted [facility] whom expressed they are currently full and unable to accept. WANDA left a voicemail with [facility] to see if they would reconsider placement. WANDA contacted [facility] whom expressed they would discuss with the team but they were declining due to alcohol related concerns and they likely would not change their mind on declining. WANDA contacted [facility] to determine if they accept [employer] and if they would review the referral. They stated to send the referral. WANDA sent referral via secure email. WANDA left a voicemail with [facility]. SW was notified [facility] is unable to clinically accept. Discharge plan: SNF or Home with Home Health/24/7 care
--- NOTE | 2023-05-18 17:14 | NUR ---
green end worker contacted patient's daughter, Sofi and provided the update on the facilities currently unable to accept. SW expressed they are waiting to hear back from [facility] and see if [facility] would re-review but if they state they are unable to accept they would need to take patient home. Sofi expressed they are a bit overwhelmed and wanted to see if they would be able to have a day to prepare as patient's home is not set up for him to return safely. SW expressed she would discuss with director tomorrow but to her understanding he may need to discharge tomorrow but she would contact her tomorrow with an update. Discharge plan: SNF or Home with Home Health
--- NOTE | 2023-05-18 17:34 | NUR ---
WANDA faxed referral to [facility] in [place] and [facility].
[2023-05-18 19:23] VITALS: BP 100/70; PULSE 100; TEMP 97.7
--- NOTE | 2023-05-18 21:00 | NUR ---
UPON SHIFT ASSESSMENT, ABNER'S EX- WAS VISITING BEDSIDE. MENTATION SEEMS IMPROVED AND HE IS AXO X2. LUNG SOUNDS STILL AUSCULTATE FINE CRACKLES IN UPPER LOBES, DIMINISHED IN LOWER. VS ARE WNL. LT ELBOW DRESSING CDI. HE DENIES PAIN OR NEEDS AT THIS TIME. BED ALARM ON, CALL LIGHT WITHIN REACH.
[2023-05-18 23:32] VITALS: BP 107/73; PULSE 94; TEMP 97.6
--- NOTE | 2023-05-19 02:29 | NUR ---
ABNER IS AWAKE AND AMBULATED TO BEDSIDE RECLINER. HE IS LESS LETHARGIC AND IS AXO X 3. ASKED FOR AND RECIEVED COFFEE BLACK
[2023-05-19 03:36] VITALS: BP 119/72; PULSE 73; TEMP 97.5
--- NOTE | 2023-05-19 06:33 | NUR ---
THROUGHOUT THE NIGHT, ABNER HAD SEVERAL OCCASIONS OF INCONTINENCE. HE AWOKE FULLY AT ONE POINT AND SAT IN BEDSIDE RECLINER AND WAS AXO X3. HE IS CURRENTLY ASLEEP. LUNG SOUNDS REMAIN ABNORMAL WITH CRACKLES UPPER LOBES BILATERALLY. ABNER TRIED TO AMBULATE TO BATHROOM BY HIMSELF AND HIS GAIT WAS PROFOUNDLY UNSTEADY. VS WNL. TELE NS. DENIES NEEDS AT THIS TIME. BED ALARM ACTIVATED.
[2023-05-19 07:41] VITALS: BP 102/70; PULSE 88; TEMP 97.5
--- NOTE | 2023-05-19 09:42 | NUR ---
ABNER WAS SITTING UP IN CHAIR EATING BREAKFAST WHEN THIS RN ENTERED ROOM FOR MORNING MEDICATION PASS. PREVIOUS SHIFT RN WAS CONCERNED ABOUT CHANGE IN DRAINAGE COLOR AND CONSISTANCY, REPORTED THIS CONCERN TO WOUND CARE ELECTRONIC FUNDS TRANSFER COORDINATOR WHEN SHE ARRIVED ON THE UNIT. WOUND CARE PRESENTLY AT BEDSIDE FOR ASSESSMENT AND DRESSING CHANGE.
[2023-05-19] MEDS ORDERED: FOLIC ACID 11 MG/TA1 PO (09:49)
[2023-05-19] MEDS ORDERED: MAG-OX 400400 MG/TAB PO (09:49)
[2023-05-19] MEDS ORDERED: THIAMINE 1100 MG/TAB PO (09:50)
[2023-05-19] MEDS ORDERED: DUO-KAPS1 CAP PO (09:50)
[2023-05-19] MEDS ORDERED: PROAMATINE 5MG T5 MG PO (09:51)
--- NOTE | 2023-05-19 12:59 | NUR ---
DISCHARGE EDUCATION AND INFORMATION PROVIDED TO PATIENT AND DISCUSSED WITH BOTH PATIENT AND FAMILY PRESENT. ALL QUESTIONS ANSWERED TO PATIENT/FAMILY SATISFACTION. DISCONTINUED IV ACCESS AT THIS TIME.
[2023-05-19 13:00] VITALS: BP 113/82; PULSE 87; TEMP 98
--- NOTE | 2023-05-19 14:25 | NUR ---
O2 THERAPY ARRIVED AND DELIVERED O2 TO PATIENT. FAMILY AT BEDSIDE. PATIENT DISCHARGED.
--- NOTE | 2023-05-19 17:45 | NUR ---
mental health social worker attended the clinical rounding with the interdisciplinary team. Patient is medically ready for discharge today. WANDA left a voicemail for Marcy with [facility] to contact Sofi for assistance with services in the home. WANDA contacted [facility] to determine if they would reconsider for placement, they denied patient. WANDA Student contacted [place] and [place] [facility] whom both are unable to accept patient. WANDA contacted [facility] and left a voicemail. SW confirmed that [facility] is unable to accept patient for SNF. Updated list of referrals sent: Unable to accept: [facility], [facility], [facility] [place], [facility] [place], [facility], [facility] [place], [facility], [facility] [place], [facility], [facility], [facility] and [facility]. Accepted: [facility] SW heard back from [facility] and they are able to accept patient and can fruit or nut picker at 1:30-2 today. WANDA contacted patient's daughter, Sofi, whom expressed she had discussed this with her sister and they are worried that with patient being 45 miles away if something were to happen they would not be able to get there in time. Sofi expressed she would speak with her sister again and call back but they are thinking they would rather he go home with home health. WANDA received a call back from Sofi whom expressed they decided on home health with [facility]. Sofi asked if they would be able to assist with getting a gait belt, walker, wheelchair, bedside commode, shower chair and hospital bed. WANDA provided contact information for [employer] stores for hospital beds if they can call them she would work on the other supplies. WANDA contacted [facility] whom expressed they have the gait belt, walker, wheelchair and bedside commode and [facility] has a shower chair. WANDA provided this information to the family for them to fruit or nut picker. WANDA sent the Home health referral to [facility]. WANDA was notified after patient's exercise oximetry test patient qualifies for oxygen. WANDA faxed DME order and supporting documents to [facility]. Home medical will deliver to hospital room. WANDA was notified by [facility] that they are declining patient for home health and they expressed patient may be more suited for hospice. WANDA asked manager of application development speak with [employer] to determine if pallative consult is needed. manager of application development spoke with [employer]. WANDA spoke with patient's daughter, Sofi, regarding [facility] denial. Sofi expressed they would work with [facility] private duty if [facility] would be able to do therapy and wound care. WANDA contacted [facility] whom expressed they previously had this patient for care and would be able to accept patient. WANDA secure emailed referral and discharge orders to [facility]. Discharge plan: Home with Home Health and private duty caregivers.
== END 2023-05-19 14:50 | disposition home or self-care (01) | DRG 315 ==
LOC: COL.ER 12:46 → ICU 15:00 → MEDICAL 15:00
PROVIDERS: Family Medicine; Nurse Practitioner Family; Physician Assistant; ADMIT Internal Medicine
DX: I95.9 Hypotension, unspecified (principal); E87.1 Hypo-osmolality and hyponatremia; S42.202A Unspecified fracture of upper end of left humerus, initial encounter for closed fracture; F10.939 Alcohol use, unspecified with withdrawal, unspecified; N17.9 Acute kidney failure, unspecified; E86.0 Dehydration; Z11.52 Encounter for screening for COVID-19; R09.02 Hypoxemia; E78.5 Hyperlipidemia, unspecified; K21.9 Gastro-esophageal reflux disease without esophagitis; J44.9 Chronic obstructive pulmonary disease, unspecified; Z72.0 Tobacco use; I25.10 Atherosclerotic heart disease of native coronary artery without angina pectoris; Z95.1 Presence of aortocoronary bypass graft
CPT/HCPCS: C1751; C9113; J0692; J1940; J3370; J3411; J3475; J7030; J7040; J7050; J7060; Q9967